=== PATIENT | male | born 1985 | race Caucasian/White ===

== ENCOUNTER 2018-04-28 21:20 | Emergency (ER) | payer OTHER ==
[2018-04-28 23:02] VITALS: BP 128/71
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
== END 2018-04-28 23:00 | disposition home or self-care (01) ==
LOC: ED 21:20
DX: S80.12XA Contusion of left lower leg, initial encounter (principal); W22.8XXA Striking against or struck by other objects, initial encounter; Y92.9 Unspecified place or not applicable
CPT/HCPCS: 99282